=== PATIENT | male | born 1970 | race Caucasian/White ===

== ENCOUNTER 2017-10-06 00:47 | Emergency (ER) | payer SELFPAY, OTHER | END 2017-10-06 04:10 | disposition home or self-care (01) | LOC: E/R 00:47 | DX: S00.83XA Contusion of other part of head, initial encounter (principal); S89.92XA Unspecified injury of left lower leg, initial encounter; S89.91XA Unspecified injury of right lower leg, initial encounter; W10.8XXA Fall (on) (from) other stairs and steps, initial encounter; Y92.9 Unspecified place or not applicable | CPT/HCPCS: 70450; 99284-25 ==